=== PATIENT | female | born 1945 | race Caucasian/White ===

== ENCOUNTER 2018-09-04 13:08 | Emergency (ER) | payer MEDICARE, MEDICAID ==
[~2018-09-04] VITALS: Ht 154.9 cm; Wt 74.8 kg
[~2018-09-04 13:08] MED LIST: ACET-2154 PO; CALC3.8S NS; CLON0.1T PO; CLON0.5T PO; DIVA500T2 PO; DOCU-141 PO; ESTR0.623 PO; FOLI0.8T2 PO; LEVO75TA PO; LORA-258 PO; MAG-55 PO; MAGN400O6 PO; OLAN20TA17 PO; SEVE800T7 PO; VENL75TA4 PO; ZOLP5TAB2 PO
--- NOTE | 2018-09-04 13:29 | NUR ---
Dr Miles is at bedside doing the MSE.
[2018-09-04] MEDS ORDERED: IV NORMAL SALINE 500 ML BAG IV ONE (13:45)
[2018-09-04] MEDS ORDERED: MIRT30TA PO (14:01)
[2018-09-04] MEDS ORDERED: FOLI0.8T7 PO (14:01)
[2018-09-04] MEDS ORDERED: DIVA500T2 PO (14:01)
[2018-09-04] MEDS ORDERED: VENL75TA7 PO (14:01)
[2018-09-04] MEDS ORDERED: ASPI-1152 PO (14:01)
[2018-09-04 14:16] LABS: BASOPHILS # (AUTO) 0.1 K/uL (0.0-8.0); BASOPHILS % (AUTO) 1.2 % (0.0-2.0); EOSINOPHILS # (AUTO) 0.1 K/uL (0.0-0.7); EOSINOPHILS % (AUTO) 1.9 % (0.0-7.0); HEMATOCRIT 36.5 % (31.2-41.9); HEMOGLOBIN 12.3 g/dL (10.9-14.3); LYMPHOCYTES # (AUTO) 1.3 K/uL (20.0-40.0); LYMPHOCYTES % (AUTO) 20.2 % (20.5-51.5); MEAN CORPUSCULAR HEMOGLOBIN 34.8 uug (24.7-32.8); MEAN CORPUSCULAR HGB CONC 34 g/dL (32.3-35.6); MEAN CORPUSCULAR VOLUME 103.1 fL (75.5-95.3); MONOCYTES # (AUTO) 0.6 K/uL (2.0-10.0); NEUTROPHILS # (AUTO) 4.3 K/uL (1.8-8.9); NEUTROPHILS % (AUTO) 67.7 % (38.5-71.5); PLATELET COUNT (AUTO) 263 K/uL (179-408); RED BLOOD CELL COUNT(AUTO) 3.54 MIL/uL (3.63-4.92); WHITE BLOOD COUNT (AUTO) 6.3 K/uL (3.8-11.8)
[2018-09-04 14:19] LABS: CARBON DIOXIDE 33 mmol/L (21-32); CHLORIDE 93 mmol/L (98-107); CREATININE 2.9 mg/dL (0.6-1.3); GLUCOSE 136 mg/dL (74-106); POTASSIUM 3.1 mmol/L (3.5-5.1); UREA NITROGEN, BLOOD 18 mg/dL (7-18)
[2018-09-04 14:24] LABS: ALANINE AMINOTRANSFERASE 26 U/L (14-59); ALKALINE PHOSPHATASE 104 U/L (50-136); ASPARTATE AMINOTRANSFERASE 30 U/L (15-37); BILIRUBIN,DIRECT 0.1 mg/dL (0.0-0.2); BILIRUBIN,TOTAL 0.4 mg/dL (0.2-1.0); LIPASE 308 U/L (73-393); TOTAL PROTEIN, SERUM 7.9 g/dL (6.4-8.2)
[2018-09-04 14:46] LABS: LYMPHOCYTES % (MANUAL) 21 % (20-40); MONOCYTES % (MANUAL) 10 % (2-10); NEUTROPHILS % (MANUAL) 69 % (42-75)
[2018-09-04] MEDS ORDERED: POTASSIUM CHLORIDE 20 MEQ TAB.PRT.SR ONE (14:47)
[2018-09-04] MEDS ORDERED: POTASSIUM CHLORIDE 20 MEQ TAB.PRT.SR PO ONE (15:00)
--- NOTE | 2018-09-04 15:06 | NUR ---
IV removed. Catheter intact and site benign. Pressure and 4x4 gauze applied to site. No bleeding noted. Patient discharged to home in stable conditon. Written and verbal after care instructions given to patient. Patient verbalizes understanding of instructions.
== END 2018-09-04 15:08 | disposition home or self-care (01) ==
LOC: ER 13:08
DX: E87.6 Hypokalemia (principal); R55 Syncope and collapse; N18.6 End stage renal disease; Z88.1 Allergy status to other antibiotic agents; Z88.5 Allergy status to narcotic agent; Z88.8 Allergy status to other drugs, medicaments and biological substances; Z99.2 Dependence on renal dialysis; Z79.82 Long term (current) use of aspirin
CPT/HCPCS: 36415; 70030-TC; 71045; 83690; 85025; 85730; 93005; A4663

== ENCOUNTER 2019-01-29 20:54 | Emergency (ER) | payer MEDICARE, MEDICAID ==
[~2019-01-29] VITALS: Ht 154.9 cm; Wt 72.6 kg
[~2019-01-29 20:54] MED LIST changes: -ACET-2154 PO; +ASPI-1152 PO; -CALC3.8S NS; -CLON0.1T PO; -ESTR0.623 PO; -FOLI0.8T2 PO; +FOLI0.8T7 PO; -LORA-258 PO; -MAG-55 PO; -MAGN400O6 PO; +MIRT30TA PO; +VENL75TA7 PO; -ZOLP5TAB2 PO
[2019-01-29] MEDS ORDERED: IV NORMAL SALINE 500 ML BAG IV ONE (21:15)
[2019-01-29 21:35] LABS: EOSINOPHILS # (AUTO) 0.1 K/uL (0.0-0.7); EOSINOPHILS % (AUTO) 1.9 % (0.0-7.0); HEMATOCRIT 30.5 % (31.2-41.9); HEMOGLOBIN 10.5 g/dL (10.9-14.3); LYMPHOCYTES # (AUTO) 0.5 K/uL (20.0-40.0); LYMPHOCYTES % (AUTO) 16.3 % (20.5-51.5); MEAN CORPUSCULAR HEMOGLOBIN 33.9 uug (24.7-32.8); MEAN CORPUSCULAR HGB CONC 34 g/dL (32.3-35.6); MEAN CORPUSCULAR VOLUME 98.5 fL (75.5-95.3); MONOCYTES # (AUTO) 0.4 K/uL (2.0-10.0); MONOCYTES % (AUTO) 13.3 % (0.0-11.0); NEUTROPHILS # (AUTO) 2.3 K/uL (1.8-8.9); NEUTROPHILS % (AUTO) 67.5 % (38.5-71.5); PLATELET COUNT (AUTO) 179 K/uL (179-408); RED BLOOD CELL COUNT(AUTO) 3.09 MIL/uL (3.63-4.92); WHITE BLOOD COUNT (AUTO) 3.4 K/uL (3.8-11.8)
[2019-01-29 21:41] LABS: CARBON DIOXIDE 30 mmol/L (21-32); CHLORIDE 91 mmol/L (98-107); CREATININE 3.6 mg/dL (0.6-1.3); GLUCOSE 122 mg/dL (74-106); POTASSIUM 3.4 mmol/L (3.5-5.1); UREA NITROGEN, BLOOD 17 mg/dL (7-18)
[2019-01-29 21:45] LABS: ALANINE AMINOTRANSFERASE 20 U/L (14-59); ALKALINE PHOSPHATASE 84 U/L (50-136); ASPARTATE AMINOTRANSFERASE 24 U/L (15-37); BILIRUBIN,DIRECT 0.1 mg/dL (0.0-0.2); BILIRUBIN,TOTAL 0.4 mg/dL (0.2-1.0); TOTAL PROTEIN, SERUM 6.8 g/dL (6.4-8.2)
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
[2019-01-29 21:46] LABS: ACETAMINOPHEN < 2.0 ug/mL (10-30)
[2019-01-29 21:49] LABS: MAGNESIUM 2.3 mg/dL (1.8-2.4); PHOSPHOROUS 3.3 mg/dL (2.5-4.9)
[2019-01-29 21:52] LABS: ETHANOL < 3 MG/DL (0-0)
[2019-01-29 21:58] LABS: BAND % (MANUAL) 2 % (0-10); EOSINOPHILS % (MANUAL) 2 % (0-8); LYMPHOCYTES % (MANUAL) 18 % (20-40); MONOCYTES % (MANUAL) 14 % (2-10); NEUTROPHILS % (MANUAL) 64 % (42-75); THYROID STIMULATING HORMONE 1.775 mIU/mL (0.358-3.740)
--- NOTE | 2019-01-29 22:23 | NUR ---
Pt. resting in bed, all needs met, IV patent and infusing fluids,
--- NOTE | 2019-01-29 23:28 | NUR ---
Gave report to pt. Rola to go into [facility], ambulance here for transport,
--- NOTE | 2019-01-29 23:55 | NUR ---
Patient discharged to home in stable conditon. Written and verbal after care instructions given. Patient verbalizes understanding of instructions. Pt. d/c per MD order, d/c papers signed, all belongings w/ pt., ID band/IV removed, taken off unit via stretcher by LIZBETH SHAH
== END 2019-01-29 23:57 | disposition home or self-care (01) ==
LOC: ER 20:57
DX: N18.9 Chronic kidney disease, unspecified (principal); D64.9 Anemia, unspecified; Z88.1 Allergy status to other antibiotic agents; Z88.5 Allergy status to narcotic agent; Z88.8 Allergy status to other drugs, medicaments and biological substances; Z79.82 Long term (current) use of aspirin; Z79.899 Other long term (current) drug therapy
CPT/HCPCS: 36415; 80048; 80076; 80164; 83735; 84100; 84443; 85025; 93005; 99284; G0480 ×2; G0481; A4663; J7040